=== PATIENT | male | born 1995 | race Native Hawaiian/Other Pacific Islander ===

== ENCOUNTER 2022-10-24 08:28 | Emergency (ER) | payer OTHER ==
[~2022-10-24] VITALS: Ht 182.9 cm; Wt 74.8 kg
[2022-10-24 08:34] VITALS: TEMP 98
[2022-10-24 10:23] VITALS: BP 118/72
== END 2022-10-24 10:39 | disposition home or self-care (01) ==
LOC: ED 08:28
DX: S29.011A Strain of muscle and tendon of front wall of thorax, initial encounter (principal); X58.XXXA Exposure to other specified factors, initial encounter; Y92.89 Other specified places as the place of occurrence of the external cause
CPT/HCPCS: 81002; 96372; 99283; J1885

== ENCOUNTER 2022-10-26 19:39 | Emergency (ER) | payer OTHER ==
[~2022-10-26] VITALS: Ht 182.9 cm; Wt 74.8 kg
[2022-10-26 19:50] VITALS: TEMP 98.7
[2022-10-26 20:08] LABS: PLATELET COUNT 222 K/uL (142-355)
[2022-10-26 20:13] LABS: POTASSIUM 3.8 mmol/L (3.6-5.2)
[2022-10-26 22:10] VITALS: BP 120/70
== END 2022-10-26 22:10 | disposition home or self-care (01) ==
LOC: ED 19:39
PROVIDERS: Internal Medicine
DX: N20.0 Calculus of kidney (principal)
CPT/HCPCS: 36415; 80053; 81002; 85027; 96374; 99284; J1100; Q9963